=== PATIENT | male | born 1950 | race Caucasian/White ===

== ENCOUNTER 2019-08-05 14:24 | Outpatient (CLI) | payer MEDICARE ==
--- NOTE | 2019-08-05 17:57 | RAD ---
LEFT SHOULDER THREE VIEWS: 08/05/19 No fracture, dislocation, or arthritic change was seen in the joint. There are no periarticular calci fications. The AC joint is not widened. The adjacent lung is clear. IMPRESSION: No significant finding. POS: HOME
== END 2019-08-05 14:25 | disposition home or self-care (01) ==
LOC: BURRAD 14:24
PROVIDERS: ATTEND Family Medicine
DX: M25.512 Pain in left shoulder (principal)

== ENCOUNTER 2021-04-27 16:29 | Emergency (ER) | payer MEDICARE ==
[2021-04-27] MEDS ORDERED: Ondansetron ODT 4 MG TAB ONE (17:03)
[2021-04-27] MEDS ORDERED: Ketorolac Tromethamine 30 MG/ML VIAL ONE (18:50)
[2021-04-27] MEDS ORDERED: Dicyclomine 20 MG TAB ONE (18:51)
== END 2021-04-27 19:03 | disposition home or self-care (01) ==
LOC: BURERS 16:29
DX: N13.2 Hydronephrosis with renal and ureteral calculous obstruction (principal); I25.10 Atherosclerotic heart disease of native coronary artery without angina pectoris
CPT/HCPCS: 74176; 96372; J1885; Q0162

== ENCOUNTER 2025-08-17 09:20 | Outpatient (CLI) | payer MEDICARE ==
[2025-08-17 10:28] LABS: Anion Gap 17 mmol/L (10-20); BUN (Urea Nitrogen) 22 mg/dL (8.4-25.7); Calc. Creatinine Clearance 0 mL/min (70-130); Carbon Dioxide 26 mmol/L (23-31); Chloride 108 mmol/L (98-107); Potassium 4.6 mmol/L (3.5-5.1); Sodium 146 mmol/L (136-145)
[2025-08-17 10:29] LABS: ALT (SGPT) 25 U/L (Less than 45); AST (SGOT) 24 U/L (11-34); Albumin 4.4 g/dL (3.1-4.5); Alkaline Phosphatase 43 U/L (40-110); Bilirubin, Total 1.1 mg/dL (0.3-1.2); Calcium 9.6 mg/dL (7.8-10.44); Cardiac Risk 2.5 (Less than 4.5); Cholesterol 120 mg/dl (< 200 Desired); Globulin 2.9 g/dL (2.4-3.5); Glucose 96 mg/dL (83-110); HDL Cholesterol 48 mg/dL (>60 Neg Risk); LDL Cholesterol, Calculated 54 mg/dL; Triglycerides 90 mg/dL (Less than 150)
[2025-08-17 11:04] LABS: Hematocrit 38.0 % (42.0-52.0); Hemoglobin 13.9 g/dL (14.0-18.0); MDiff Complete? YES; Mean Corpuscular Hemoglobin 30.6 pg (27.0-31.0); Mean Corpuscular Volume 83.8 fl (78.0-98.0); Platelet Count 216 10x3/uL (130-400); Red Blood Cell (RBC) Count 4.53 mill/uL (4.70-6.10); White Blood Cell (WBC) Count 7.6 10x3/uL (4.8-10.8)
== END 2025-08-17 09:21 | disposition home or self-care (01) ==
LOC: BURRAD 09:20
PROVIDERS: ATTEND Specialist
DX: I25.118 Atherosclerotic heart disease of native coronary artery with other forms of angina pectoris (principal); E78.2 Mixed hyperlipidemia; R73.03 Prediabetes; Z87.891 Personal history of nicotine dependence
CPT/HCPCS: 36415; 71046; 80053; 80061; 83036; 85025